=== PATIENT | female | born 1985 | race Caucasian/White ===

== ENCOUNTER 2016-08-19 09:54 | Emergency (ER) | payer OTHER ==
--- NOTE | ~2016-08-19 | CR111 ---
[facility] A Service of [facility] & [facility] RADIOLOGY TEXT RESULTS PATIENT: MARTINAJULY Nate LOCATION: [facility] : 81 UNIT #: [id number] AGE: [address]: Eduin Mendoza DO SEX: F ORDER DR: [id number] [facility] [address] [place], [place] [address] [id number] E MR#: [id number] #: [id number] NAME: MARTINA JULY : 1985 SEX: F STUDY DATE/TIME: 08/19/2016 0950 UNIT: [facility] ROOM: STUDY DESCRIPTION: CR Finger 2 View 3rd Rt Attending Physician: Eduin Mendoza D.O. Ordering Physician: Eduin Mendoza D.O. Primary Care Physician: Lisandro Jorge M.D. MEDICAL IMAGING REPORT This report is preliminary unless electronic signature is present EXAM Right third finger 08/19/2016 09:50 hours. HISTORY 30-year-old woman complains of a painful swollen third finger for a couple of days. No reported injury. COMPARISON None FINDINGS AP, lateral and oblique views demonstrate normal bone density. There is no fracture, dislocation or arthritic change. IMPRESSION Negative right third finger. Dictated by... Kristal Junior M.D. THIS IS AN ELECTRONICALLY VERIFIED REPORT Kristal Junior M.D. at 08/19/2016 2:07 PM [email or web address] TD: 08/19/2016 12:27 JOB #: [id number] MEDICAL IMAGING REPORT Page 1 of 1 COPY
[~2016-08-19 09:54] MED LIST: IBUPROFEN800 MG PO; PHENERGAN25 M1 PO; SUDAFED PO; THERAFLU
== END 2016-08-19 10:24 | disposition short-term general hospital (02) ==
LOC: CED 09:54
DX: L03.011 Cellulitis of right finger (principal); F32.9 Major depressive disorder, single episode, unspecified; F17.200 Nicotine dependence, unspecified, uncomplicated
CPT/HCPCS: 73140; 99285

== ENCOUNTER 2016-12-31 14:39 | Emergency (ER) | payer OTHER ==
[~2016-12-31] VITALS: Ht 154.9 cm; Wt 72.6 kg
== END 2016-12-31 18:58 | disposition home or self-care (01) ==
LOC: CED 14:39
DX: J32.9 Chronic sinusitis, unspecified (principal); Z88.0 Allergy status to penicillin; Z88.6 Allergy status to analgesic agent; Z88.7 Allergy status to serum and vaccine
CPT/HCPCS: 99283